=== PATIENT | male | born 1935 | race Caucasian/White ===

== ENCOUNTER 2016-07-23 08:35 | Day surgery (SDC) | payer MEDICARE ==
[~2016-07-23] VITALS: Ht 179.1 cm; Wt 123.5 kg
[~2016-07-23 08:35] MED LIST: ASPI325T32 PO; HYDR25TA4 PO; INSU100I SQ; INSU100I13 SUBQ; LISI40TA PO; METF1000 PO; SIMV40TA5 PO; Sodium Chloride LOK Flush 10 mL Syringe IV PRN; TERA5CAP6 PO; fentaNYL-PF 50 mCg/mL 2 mL Inj IVPUSH PRN
[2016-07-23 09:02] VITALS: BP 133/61; PULSE 71; RESP 16; O2SAT 94
[2016-07-23] MEDS: 0.9% Sodium Chloride 1,000 ML IV SCH ×3 (09:28→09:47)
[2016-07-23 09:58] VITALS: BP 134/71; PULSE 76; RESP 16; O2SAT 94
[2016-07-23 10:12] VITALS: BP 140/67; PULSE 70; RESP 16; O2SAT 98
--- NOTE | 2016-07-23 10:28 | ENDO ---
[address] [address] ENDOSCOPY PROCEDURE PATIENT: JESUS ROTH : 1935 MR#: [id number] ADMIT: 07/23/2016 JOB ID: [id number] DATE: 07/23/2016 PREOPERATIVE DIAGNOSIS(ES): Personal history of colon polyps. POSTOPERATIVE DIAGNOSIS(ES): Sigmoid colon polyp. OPERATION: Colonoscopy to cecum with cold forceps polypectomy. SURGEON: Erwin Coleman M.D. INDICATIONS: A 80-year-old man who has a personal history of colon polyps. His last colonoscopy was five years ago and he had two small tubular adenomas near the hepatic flexure. After discussing options with the patient, it was elected to proceed with colonoscopy. FINDINGS: He had a good prep. The scope was advanced to the cecum. Clear visualization of the appendiceal orifice and the scope was advanced into the terminal ileum. The scope was withdrawn over 9 minutes. Suction and irrigation was used. Retroflexed views of the rectum were obtained. There was a single sigmoid colon polyp. It was about 2-3 mm. It was removed in three bites. DESCRIPTION OF PROCEDURE: The procedure and sedation plan was discussed with the patient and nursing staff. A procedural time-out was held. He received 3 mg of Versed and 50 mcg of fentanyl. After performing a digital rectal examination, the Olympus PCF H 180 AL video colonoscope was passed transanally, advanced into the terminal ileum and withdrawn with results and cold forceps polypectomy as stated above. The patient tolerated the procedure well. IMPRESSION: Sigmoid colon polyp. RECOMMENDATIONS: Colonoscopy five years.
--- NOTE | 2016-07-24 10:36 | PATH ---
SURGICAL PATHOLOGY Attending Physician:Caridad Garnica CASE STATUS: Signed Out PATIENT NAME: JESUS ROTH PID: [id number] : 1935 DATE COLLECTED:07/23/2016 16:19 SPECIMEN: Colon, Biopsy CLINICAL HISTORY: 1. SIGMOID COLON POLYP FINAL DIAGNOSIS: 1.SIGMOID COLON POLYP: TUBULAR ADENOMA INVOLVING BOTH BIOPSY FRAGMENTS. ICD10 D12.5 GROSS DESCRIPTION: The specimen is received in one formalin filled container labeled with the patient's name, sublabeled "sigmoid colon polyp" and consists of 2 portions of tissue which aggregate to 0.4 x 0.3 x 0.2 CM. The specimen is entirely submitted in one cassette. 07/23/2016 [facility] MICRO DESCRIPTION: See diagnosis. ICD-9 CODES: CPT CODES: 1: 04536 Electronically Signed Out Bertin Guerrier MD [facility] [address], [place] [address] Technical component performed at [facility], [facility] [address], [place], [address]
== END 2016-07-23 23:59 | disposition home or self-care (01) ==
LOC: END 08:35
PROVIDERS: ATTEND Surgery
DX: Z12.11 Encounter for screening for malignant neoplasm of colon (principal); Z86.010 Personal history of colon polyps; D12.5 Benign neoplasm of sigmoid colon; E11.9 Type 2 diabetes mellitus without complications; E66.01 Morbid (severe) obesity due to excess calories; Z79.4 Long term (current) use of insulin; Z68.41 Body mass index [BMI] 40.0-44.9, adult; Z79.82 Long term (current) use of aspirin; Z79.84 Long term (current) use of oral hypoglycemic drugs
CPT/HCPCS: 45380; 88305; G0500; J7030